=== PATIENT | male | born 1955 | race American Indian/Alaskan Native ===

== ENCOUNTER 2019-08-24 16:52 | Emergency (ER) | payer OTHER ==
--- NOTE | 2019-08-24 17:12 | Emergency Department Report ---
ED Neuro Deficit HPI - General Chief Complaint: Neuro Symptoms/Deficit Stated Complaint: WEAKNESS Time Seen by Provider: 08/24/19 17:08 Source: patient Mode of arrival: Stretcher Limitations: No Limitations - History of Present Illness Initial Comments: Patient is 63 years old male with history of hypertension, hyperlipidemia and recent TIA. Patient brought to the emergency room via EMS for evaluation of sudden onset of difficulty speaking. EMS stated that family stated that patient's symptoms has been going on for a few days but it get worse 35 minutes prior to coming to the ER. Patient was diagnosed with a TIA one month ago but he recovered. Patient just returned back from [place] with family for Thanksgiving. Patient examined by or and stroke protocol initiated immediately. Patient examined by stroke telemetry neurology Dr Tsai, determined that patient is not a TPA candidate or a candidate for any stroke intervention at this time. He recommended that patient needed to be admitted to the hospital for stroke workup - Related Data Allergies/Adverse Reactions: Allergies Allergy/AdvReac Type Severity Reaction Status Date / Time No Known Allergies Allergy Unverified 08/24/19 17:05 ED Review of Systems ROS: Stated complaint: WEAKNESS Other details as noted in HPI Comment: All other systems reviewed and negative ED Past Medical Hx - Past Medical History Previous Medical History?: Yes Hx Hypertension: Yes Additional medical history: Hyperlipidemia. TIA's ED Neuro Physical Exam - General Limitations: No Limitations General appearance: alert Suspected Stroke: Yes - Head Head exam: Present: atraumatic, normocephalic, normal inspection - ENT ENT exam: Present: normal exam, normal orophraynx, mucous membranes moist - Neck Neck exam: Present: normal inspection, full ROM. Absent: tenderness, meningismus, lymphadenopathy, thyromegaly - Respiratory Respiratory exam: Present: normal lung sounds bilaterally - Cardiovascular Cardiovascular Exam: Present: regular rate, normal rhythm, normal heart sounds - GI/Abdominal GI/Abdominal exam: Present: soft, normal bowel sounds. Absent: distended, tenderness, guarding, rebound, rigid, organomegaly, mass, bruit, pulsatile mass, hernia - Extremities Exam Extremities exam: Present: normal inspection, full ROM, normal capillary refill. Absent: pedal edema, calf tenderness - Back Exam Back exam: Present: normal inspection, full ROM. Absent: CVA tenderness (R), CVA tenderness (L), muscle spasm, paraspinal tenderness, vertebral tenderness - Neurological Exam Neurological exam: Present: alert - NIHSS Assessment Interval: Baseline 1a. Level of Consciousness: alert/keenly responsive 1b. LOC Questions: answers 1 question correctly 1c. LOC Commands: performs 1 task correctly 2. Best Gaze: normal 3. Visual: no visual loss 4. Facial Palsy: minor paralysis 5b. Motor Arm Right: drift 5a. Motor Arm Left: no drift 6a. Motor Leg Left: no drift 6b. Motor Leg Right: drift 7. Limb Ataxia: absent 8. Sensory: normal 9. Best Language: severe aphasia 10. Dysarthria: severe dysarthria 11. Extinction/Inattention: no abnormality Total Score: 9 Stroke Severity: Moderate Stroke - Psychiatric Psychiatric exam: Present: normal mood - Skin Skin exam: Present: warm, intact, normal color ED Course Vital Signs 08/24/19 08/24/19 17:31 18:05 Temperature 97.2 F L Pulse Rate 103 H Respiratory 16 Rate Blood Pressure 141/93 [Left] O2 Sat by Pulse 94 Oximetry - Lab Data Result diagrams: 08/24/19 17:29 08/24/19 17:29 Lab Results 08/24/19 08/24/19 08/24/19 Range/Units 17:26 17:29 17:29 WBC 6.6 (4.5-11.0) K/mm3 RBC 4.58 (3.65-5.03) M/mm3 Hgb 13.8 (11.8-15.2) gm/dl Hct 43.0 (35.5-45.6) % MCV 94 (84-94) fl MCH 30 (28-32) pg MCHC 32 (32-34) % RDW 14.6 (13.2-15.2) % Plt Count 169 (140-440) K/mm3 Lymph % (Auto) 20.0 (13.4-35.0) % [place] % (Auto) 12.1 H (0.0-7.3) % Eos % (Auto) 4.0 (0.0-4.3) % Baso % (Auto) 0.3 (0.0-1.8) % Lymph # 1.3 (1.2-5.4) K/mm3 [place] # 0.8 (0.0-0.8) K/mm3 Eos # 0.3 (0.0-0.4) K/mm3 Baso # 0.0 (0.0-0.1) K/mm3 Seg Neutrophils % 63.6 (40.0-70.0) % Seg Neutrophils # 4.2 (1.8-7.7) K/mm3 PT 13.9 (12.2-14.9) Sec. INR 1.08 (0.87-1.13) APTT 29.1 (24.2-36.6) Sec. Thrombin Time (15.1-19.6) Sec. Sodium (137-145) mmol/L Potassium (3.6-5.0) mmol/L Chloride (98-107) mmol/L Carbon Dioxide (22-30) mmol/L Anion Gap mmol/L BUN (9-20) mg/dL Creatinine (0.8-1.5) mg/dL Estimated GFR ml/min BUN/Creatinine Ratio % Glucose (75-100) mg/dL POC Glucose 136 H (70-105) Calcium (8.4-10.2) mg/dL Troponin T (0.00-0.029) ng/mL NT-Pro-B Natriuret Pep (0-900) pg/mL Triglycerides (2-149) mg/dL Cholesterol (50-199) mg/dL LDL Cholesterol Direct (50-130) mg/dL HDL Cholesterol (40-59) mg/dL Cholesterol/HDL Ratio % 08/24/19 08/24/19 08/24/19 Range/Units 17:29 17:29 17:29 WBC (4.5-11.0) K/mm3 RBC (3.65-5.03) M/mm3 Hgb (11.8-15.2) gm/dl Hct (35.5-45.6) % MCV (84-94) fl MCH (28-32) pg MCHC (32-34) % RDW (13.2-15.2) % Plt Count (140-440) K/mm3 Lymph % (Auto) (13.4-35.0) % [place] % (Auto) (0.0-7.3) % Eos % (Auto) (0.0-4.3) % Baso % (Auto) (0.0-1.8) % Lymph # (1.2-5.4) K/mm3 [place] # (0.0-0.8) K/mm3 Eos # (0.0-0.4) K/mm3 Baso # (0.0-0.1) K/mm3 Seg Neutrophils % (40.0-70.0) % Seg Neutrophils # (1.8-7.7) K/mm3 PT (12.2-14.9) Sec. INR (0.87-1.13) APTT (24.2-36.6) Sec. Thrombin Time 18.3 (15.1-19.6) Sec. Sodium 162 H* (137-145) mmol/L Potassium 5.5 H (3.6-5.0) mmol/L Chloride 123.5 H (98-107) mmol/L Carbon Dioxide 27 (22-30) mmol/L Anion Gap 17 mmol/L BUN 74 H (9-20) mg/dL Creatinine 4.5 H (0.8-1.5) mg/dL Estimated GFR 16 ml/min BUN/Creatinine Ratio 16 % Glucose 118 H (75-100) mg/dL POC Glucose (70-105) Calcium > 13.0 H* (8.4-10.2) mg/dL Troponin T 0.076 H (0.00-0.029) ng/mL NT-Pro-B Natriuret Pep 434.0 (0-900) pg/mL Triglycerides 108 (2-149) mg/dL Cholesterol 117 (50-199) mg/dL LDL Cholesterol Direct 63 (50-130) mg/dL HDL Cholesterol 40 (40-59) mg/dL Cholesterol/HDL Ratio 2.92 % - EKG Data -: EKG Interpreted by Me - Radiology Data Radiology results: report reviewed - Medical Decision Making Patient is 63 years old male with history of hypertension, hyperlipidemia and recent TIA. Patient brought to the emergency room via EMS for evaluation of sudden onset of difficulty speaking. EMS stated that family stated that patient's symptoms has been going on for a few days but it get worse 35 minutes prior to coming to the ER. Patient was diagnosed with a TIA one month ago but he recovered. Patient just returned back from [place] with family for Thanksgiving. Patient examined by me and stroke protocol initiated immediately. Patient examined by stroke telemetry neurology Dr Tsai, determined that patient is not a TPA candidate or a candidate for any stroke intervention at this time. He recommended that patient needed to be admitted to the hospital for stroke workup. CT brain showed multiple old infarct. Labs showed hypernatremia, hyperchloremia, hypercalcemia, acute renal failure. Patient started on Normal saline Patient discussed with Dr. Mueller, he agreed to admit the patient to medical service Family arrived at approximately 7:30 PM and they stated that patient is [facility] patient. I discussed the patient with , informed about the patient. I discussed the patient was from [facility] and she accepted the patient to be transferred to [facility] for further management. Critical Care Time: Yes Critical care time in (mins) excluding proc time.: 45 Critical care attestation.: If time is entered above; I have spent that time in minutes in the direct care of this critically ill patient, excluding procedure time. ED Disposition Clinical Impression: Cerebrovascular accident, Altered mental status, Hypernatremia, Hypercalcemia, Acute renal failure Disposition: [id number]/TX-[id number] ANOTHER TYPE HLTHCARE Is pt being admited?: Yes Condition: Stable Referrals: PRIMARY CARE, [Primary Care Provider] - 3-5 Days
--- NOTE | 2019-08-24 17:29 | Cat Scan Report ---
CT head/brain wo con INDICATION / CLINICAL INFORMATION: 63 years Male; neuro deficits <6hrs or sx present upon awakening. TECHNIQUE: Routine CT head without contrast. All CT scans at this location are performed using CT dos e reduction for ALARA by means of automated exposure control. COMPARISON: None. FINDINGS: BRAIN / INTRACRANIAL CONTENTS: There are old infarcts involving the frontal lobes with encephalomalac ia, larger on the left extending to the region of the left frontal operculum and left basal ganglia. Additionally, there are also chronic ischemic changes involving the right parietal lobe and posterior left cerebellum. There is no definitive CT evidence of acute intracranial hemorrhage or significant mass effect. There is mild cerebral and cerebellar atrophy with associated mild prominence of the ventricular system. ORBITS: No significant abnormality of visualized orbits. SINUSES / MASTOIDS: No significant abnormality the visualized paranasal sinuses or mastoid air cells. CRANIOCERVICAL JUNCTION: No significant abnormality. ADDITIONAL FINDINGS: None. IMPRESSION: 1. There is extensive microvascular angiopathy with multiple old infarcts as detailed above. 2. There is no definitive CT evidence of acute intracranial hemorrhage. The study was specified as code stroke and called emergently to Dr. Pierson in the ER at 4:23 PM [facility] standard time. Signer Name: Kavin Pacheco MD Signed: 08/24/2019 5:25 PM Workstation Name: [id number]
--- NOTE | 2019-08-24 17:37 | Consultation ---
History of Present Illness History of present illness: [facility] Date of Service: 08/24/2019 17:03:45 Impression: RO Acute Ischemic Stroke Left Hemispheric Infarct Comments: Patient with AMS/aphasia, but unclear last known normal and unknown baseline. CT shows chronic LMCA infarct, so unsure if this is his baseline residua. Not a candidate for any stroke intervention as his baseline is unknown and last known baseline is unknown. Metrics: Last Known Well: Unknown [employer] Notification Time: 08/24/2019 17:02:22 Arrival Time: 08/24/2019 16:52:00 Stamp Time: 08/24/2019 17:03:45 Time First Login Attempt: 08/24/2019 17:06:00 Video Start Time: 08/24/2019 17:06:00 Symptoms: AMS NIHSS Start Assessment Time: 08/24/2019 17:17:00 (pt in CT on log in) Patient is not a candidate for tPA. Patient was not deemed candidate for tPA thrombolytics because of unknown last known well. Video End Time: 08/24/2019 17:23:00 CT head showed no acute hemorrhage or acute core infarct. Advanced imaging was not obtained as the presentation was not suggestive of Large Vessel Occlusive Disease. ER Physician notified of the decision on thrombolytics management on 08/24/2019 17:23:00 Our recommendations are outlined below. Recommendations: Activate Stroke Protocol Admission/Order Set Stroke/Telemetry Floor Neuro Checks Bedside Swallow Eval DVT Prophylaxis IV Fluids, Normal Saline Head of Bed Below 30 Degrees Euglycemia and Avoid Hyperthermia (PRN Acetaminophen) Antiplatelet Therapy Recommended Recommended Scan: MRI Head Without Contrast MRA Head and Neck Without Contrast When Available - Stroke Protocol Lipid Panel to Be Obtained, if Not Done in the Last Three Months Therapies: Physical Therapy, Occupational Therapy, Speech Therapy Assessment When Applicable Dysphaghia Screen: NPO Until Swallow Evaluation DVT prophylaxis: Choice of Primary Team Disposition: Follow up with Teleneurology Follow up Sign Out: Discussed with Emergency Department Provider History of Present Illness: Patient is a 63 year old Male. Patient was brought by EMS for symptoms of AMS Patient with unknown medical background presenting by EMS for AMS. Unknown last known normal. Friends apparently went to the patient's house today and found him altered and speaking nonsensically. No family contact info and friend's unable to be reached. CT head showed no acute hemorrhage or acute core infarct. Examination: BP(141/93), Blood Glucose(136) 1A: Level of Consciousness - Alert; keenly responsive + 0 1B: Ask Month and Age - Aphasic + 2 1C: Blink Eyes & Squeeze Hands - Performs 1 Task + 1 2: Test Horizontal Extraocular Movements - Normal + 0 3: Test Visual Bass - No Visual Loss + 0 4: Test Facial Palsy (Use Grimace if Obtunded) - Minor paralysis (flat nasolabial fold, smile asymetry) + 1 5A: Test Left Arm Motor Drift - No Drift for 10 Seconds + 0 5B: Test Right Arm Motor Drift - Drift, but doesn't hit bed + 1 6A: Test Left Leg Motor Drift - No Drift for 5 Seconds + 0 6B: Test Right Leg Motor Drift - Drift, but doesn't hit bed + 1 7: Test Limb Ataxia (FNF/Heel-Mark) - No Ataxia + 0 8: Test Sensation - Normal; No sensory loss + 0 9: Test Language/Aphasia - Severe Aphasia: Fragmentary Expression, Inference Needed, Cannot Identify Materials + 2 10: Test Dysarthria - Severe Dysarthria: Unintelligble Slurring or Out of Proportion to Dysphasia + 2 11: Test Extinction/Inattention - No abnormality + 0 NIHSS Score: 10 Patient was informed the Neurology Consult would happen via TeleHealth consult by way of interactive audio and video telecommunications and consented to receiving care in this manner. Due to the immediate potential for life-threatening deterioration due to underlying acute neurologic illness, I spent 35 minutes providing critical care. This time includes time for face to face visit via telemedicine, review of medical records, imaging studies and discussion of findings with providers, the patient and/or family. Dr Sujit Tsai [employer] Case [id number] Medications and Allergies Allergies Allergy/AdvReac Type Severity Reaction Status Date / Time No Known Allergies Allergy Unverified 08/24/19 17:05 Physical Examination - Vital Signs Vital Signs: Vital Signs Pulse Resp BP Pulse Ox 103 H 16 141/93 94 08/24/19 17:31 08/24/19 17:31 08/24/19 17:31 08/24/19 17:31 Results - Laboratory Findings Abnormal Lab Findings: Abnormal Labs 08/24/19 17:26 POC Glucose 136 H
[2019-08-24 17:44] LABS: Basophils % (Auto) 0.3 % (0.0-1.8); Eosinophils # (Auto) 0.3 K/mm3 (0.0-0.4); Hemoglobin 13.8 gm/dl (11.8-15.2); Lymphocytes # (Auto) 1.3 K/mm3 (1.2-5.4); Mean Corpuscular HGB Conc 32 % (32-34); Mean Corpuscular Volume 94 fl (84-94); Monocytes # (Auto) 0.8 K/mm3 (0.0-0.8); Monocytes % (Auto) 12.1 % (0.0-7.3); Platelet Count 169 K/mm3 (140-440); Red Blood Count 4.58 M/mm3 (3.65-5.03); Red Cell Distribution Width 14.6 % (13.2-15.2)
[2019-08-24 17:54] LABS: INR 1.08 (0.87-1.13)
[2019-08-24 17:55] LABS: BUN/Creatinine Ratio 16; Blood Urea Nitrogen 74 mg/dL (9-20); Hemolysis Index 4; Partial Thromboplastin Time 29.1 Sec. (24.2-36.6)
[2019-08-24 18:00] LABS: Calcium > 13.0 mg/dL (8.4-10.2)
[2019-08-24 18:13] LABS: Chol/HDL Ratio 2.92 %; HDL Cholesterol 40 mg/dL (40-59); LDL Cholesterol,Direct 63 mg/dL (50-130)
[2019-08-24] MEDS ORDERED: SODIUM CHLORIDE 0.9% 1000 ML 1,000 ML IV ONE (18:23)
--- NOTE | 2019-08-24 19:36 | XRay Report ---
CHEST 1 VIEW INDICATION / CLINICAL INFORMATION: AMS. COMPARISON: None available. FINDINGS: SUPPORT DEVICES: None. HEART / MEDIASTINUM: No significant abnormality. LUNGS / PLEURA: There are nonspecific diffuse bilateral hazy pulmonary opacities. No pleural effusion . No pneumothorax. ADDITIONAL FINDINGS: No significant additional findings. IMPRESSION: 1. Nonspecific diffuse bilateral hazy pulmonary opacities. Differential considerations include edema versus atypical infection. Signer Name: Maryanne Ventura MD Signed: 08/24/2019 7:32 PM Workstation Name: [id number]
[2019-08-25] MEDS ORDERED: SODIUM CHLORIDE 0.9% 1000 ML 1,000 ML ONE (00:34)
[2019-08-25 02:00] VITALS: BP 141/93
== END 2019-08-25 01:59 | disposition other institution (70) ==
LOC: ED 16:52
DX: I63.9 Cerebral infarction, unspecified (principal); R41.82 Altered mental status, unspecified; E87.0 Hyperosmolality and hypernatremia; E83.52 Hypercalcemia; N17.9 Acute kidney failure, unspecified; I10 Essential (primary) hypertension; E78.5 Hyperlipidemia, unspecified
CPT/HCPCS: 36415; 70450; 71045; 80048; 80061; 82962; 83880; 84484; 85025; 85610; 85670; 85730; 93005; 93010; 96360; 99291; J7030